=== PATIENT | female | born 1970 | race Caucasian/White ===

== ENCOUNTER → 2020-01-03 10:00 | Outpatient (CLI) | payer BC, SELFPAY ==
--- NOTE | ~2020-01-03 | MM_ITS ---
EXAMINATION: MM screening bart BI w lesa HISTORY: Screening mammogram TECHNIQUE: Craniocaudal and mediolateral oblique 3-D tomosynthesis images were obtained and synthetic 2-D images were generated. CAD analysis was submitted and interpreted. COMPARISON: No prior mammogram is available for comparison at this institution. BREAST PARENCHYMAL COMPOSITION: There are scattered areas of fibroglandular density. FINDINGS: There is focal asymmetry in the upper outer quadrant of the right breast. There is no mammo graphic evidence for malignancy in the left breast. IMPRESSION: 1. Focal asymmetry upper outer quadrant of the right breast. 2. Additional mammographic views and possible breast ultrasound are recommended. BI-RADS Category 0: Incomplete: Needs additional imaging evaluation. Reviewed, dictated and finalized at location A. GER PLANNING IMPRESSION: 1. Focal asymmetry upper outer quadrant of the right breast. 2. Additional mammographic views and possible breast ultrasound are recommended . BI-RADS Category 0: Incomplete: Needs additional imaging evaluation.
== END ==
PROVIDERS: PCP Family Medicine; Visit Provider Obstetrics & Gynecology Gynecologic Oncology
DX: Z12.31 Encounter for screening mammogram for malignant neoplasm of breast (principal); R92.8 Other abnormal and inconclusive findings on diagnostic imaging of breast
CPT/HCPCS: 77063; 77067

== ENCOUNTER 2020-04-08 14:36 | Outpatient (CLI) | payer BC, SELFPAY ==
--- NOTE | ~2020-04-08 | US_ITS ---
EXAMINATION:US venous doppler LE LT INDICATION:Left leg swelling TECHNIQUE: Multiple grayscale, color flow and Doppler images of the left lower extremity deep venous systems were obtained and reviewed. COMPARISON:01/05/2008 FINDINGS: The common femoral, superficial femoral and popliteal veins demonstrate normal respiratory variation, augmentation and compressibility. Color flow is also seen within the posterior tibial, pe roneal, greater saphenous and profunda veins. IMPRESSION: 1: No lower extremity deep venous thrombosis. Reviewed, dictated and finalized at location A.
== END 2020-04-08 14:37 | disposition home or self-care (01) ==
PROVIDERS: PCP Family Medicine; Visit Provider Internal Medicine Medical Oncology
DX: M79.89 Other specified soft tissue disorders (principal)
CPT/HCPCS: 93971

== ENCOUNTER 2020-07-30 16:03 | Outpatient (CLI) | payer BC, SELFPAY ==
--- NOTE | ~2020-07-30 | XR_ITS ---
XR ankle RT min 3V DATE: 07/30/2020 16:29 INDICATION: Right ankle pain TECHNIQUE: 4 views COMPARISON: None FINDINGS: No fracture or dislocation of the ankle or disruption of the ankle mortise. Mild plantar calcaneal enthesopathy. IMPRESSION: Mild calcaneal enthesopathy Reviewed, dictated and finalized at location B. IMPRESSION: Mild calcaneal enthesopathy
--- NOTE | ~2020-07-30 | XR_ITS ---
XR foot RT min 3V DATE: 07/30/2020 16:29 INDICATION: Right foot pain TECHNIQUE: 4 views COMPARISON: None FINDINGS: Mild plantar calcaneal enthesopathy. No fracture or dislocation, periosteal reaction or karlos ne destruction. IMPRESSION: Mild plantar calcaneal enthesopathy Reviewed, dictated and finalized at location B.
== END 2020-07-30 16:04 ==
PROVIDERS: PCP Family Medicine; Visit Provider Family Medicine
DX: M25.571 Pain in right ankle and joints of right foot (principal)
CPT/HCPCS: 73610; 73630

== ENCOUNTER 2020-12-30 15:02 | Outpatient (CLI) | payer BC, SELFPAY ==
--- NOTE | ~2020-12-30 | XR_ITS ---
EXAMINATION: XR elbow LT min 3V DATE: 12/30/2020 15:32 INDICATION: Left elbow pain TECHNIQUE: Anteroposterior, two oblique and lateral views of the left elbow were obtained. COMPARISON: None. FINDINGS: Alignment is normal. No fracture or joint effusion. Joint spaces are normal. Soft tissues a re unremarkable. IMPRESSION: 1. No acute osseous abnormality. Reviewed, dictated and finalized at location A. 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
== END 2020-12-30 15:03 ==
PROVIDERS: PCP Family Medicine; Visit Provider Family Medicine
DX: M25.522 Pain in left elbow (principal)
CPT/HCPCS: 73080

== ENCOUNTER 2021-06-16 11:46 | Outpatient (CLI) | payer BC, SELFPAY ==
--- NOTE | ~2021-06-16 | XR_ITS ---
EXAMINATION: XR toe 3rd LT min 2V DATE: 06/16/2021 13:25 INDICATION: Pain, swelling and bruising at the left third toe post fall TECHNIQUE: Dorsal plantar, lateral and oblique views of the left third toe were obtained. COMPARISON: None FINDINGS: Minimal distraction of a tiny intra-articular avulsion fracture along the dorsal rim at the base of t he third distal phalanx. Mild mallet toe configuration of the third toe with 20 degree of plantar fle xion at the distal interphalangeal joint and fully extended proximal interphalangeal joint. No other fractures identified. Joint spaces are relatively preserved. Soft tissue swelling about the third dis danielle interphalangeal joint. IMPRESSION: Left third mallet toe with minimal distraction a tiny intra-articular avulsion fracture along the kayal kel rim of the base of the third distal phalanx. Reviewed, dictated and finalized at location A. IMPRESSION: Left third mallet toe with minimal distraction a tiny intra-articular avulsion fracture along the dorsal rim of the base of the third distal phalanx.
--- NOTE | ~2021-06-16 | XR_ITS ---
EXAMINATION: XR chest 2V 06/16/2021 12:58 INDICATION: Dyspnea. PROCEDURE: 2 view chest COMPARISON: No prior studies for comparison. FINDINGS: The lungs are clear. The cardiomediastinal silhouette is within normal limits. There are no pleural effusions. There is no pneumothorax suspected. IMPRESSION: 1: NO ACUTE CARDIOPULMONARY DISEASE. Reviewed, dictated and finalized at location A.
--- NOTE | ~2021-06-16 | XR_ITS ---
EXAMINATION: XR ankle RT min 3V DATE: 06/16/2021 13:25 INDICATION: Right ankle pain TECHNIQUE: Anteroposterior, oblique, mortise, and lateral views of the right ankle were obtained. COMPARISON: 07/30/2020 FINDINGS: Alignment is normal. No fracture. Joint spaces are well maintained. No ankle joint effusion. Small plantar calcaneal spur. The soft tissues are unremarkable. IMPRESSION: 1. Small plantar cranial spur. Otherwise unremarkable right ankle radiographs. Reviewed, dictated and finalized at location A.
== END 2021-06-16 11:47 ==
PROVIDERS: PCP Family Medicine; Visit Provider Family Medicine
DX: R06.00 Dyspnea, unspecified (principal); M25.571 Pain in right ankle and joints of right foot; M79.675 Pain in left toe(s); M77.31 Calcaneal spur, right foot
CPT/HCPCS: 71046; 73610; 73660

== ENCOUNTER 2021-07-17 07:47 | Outpatient (CLI) | payer BC, SELFPAY ==
--- NOTE | ~2021-07-17 | XR_ITS ---
EXAMINATION: XR wrist LT min 3V DATE: 07/17/2021 08:11 INDICATION: Left wrist pain TECHNIQUE: Posteroanterior, ulnar deviation, oblique, and lateral views of the left wrist were obtain ed. COMPARISON: None available FINDINGS: There is no fracture, dislocation, or subluxation. Mild osteoarthritis is noted in the stefanie caphe and first carpometacarpal joints. The soft tissues are unremarkable. IMPRESSION: 1. No acute osseous abnormality. Reviewed, dictated and finalized at location A.
== END 2021-07-17 07:48 ==
PROVIDERS: PCP Family Medicine; Visit Provider Family Medicine
DX: M25.532 Pain in left wrist (principal)
CPT/HCPCS: 73110

== ENCOUNTER 2021-10-22 15:50 | Outpatient (CLI) | payer BC, SELFPAY ==
--- NOTE | ~2021-10-22 | XR_ITS ---
XR femur LT min 2V DATE: 10/22/2021 16:23 INDICATION: Left hip and leg pain TECHNIQUE: AP and lateral views COMPARISON: 10/22/2021 left hip FINDINGS: There is osteopenia. No fracture or dislocation, periosteal reaction or bone destruction of the left femur is detected. No rmal alignment at the left hip and knee joints. IMPRESSION: Osteopenia Reviewed, dictated and finalized at location B. TABLE ATTENDANT IMPRESSION: Osteopenia
--- NOTE | ~2021-10-22 | XR_ITS ---
XR hip LT 2V w AP pelvis 10/22/2021 16:23 Indication: Hip pain Procedure: AP pelvis and 2 views left hip Comparison: No prior studies for comparison. Findings: No fracture, subluxation or dislocation. There is anatomic alignment. There are extensive s urgical changes in the lower abdomen and pelvis. Impression: 1: No acute bone or joint abnormality. Reviewed, dictated and finalized at location A. F DEVELOPER Impression: 1: No acute bone or joint abnormality.
== END 2021-10-22 15:51 ==
PROVIDERS: PCP Family Medicine; Visit Provider Family Medicine
DX: M85.852 Other specified disorders of bone density and structure, left thigh (principal)
CPT/HCPCS: 73502; 73552

== ENCOUNTER 2022-09-13 12:42 | Outpatient (CLI) | payer BC, SELFPAY ==
--- NOTE | ~2022-09-13 | XR_ITS ---
EXAMINATION: XR knee RT 3V DATE: 09/13/2022 13:09 INDICATION: Right knee pain TECHNIQUE: Three views of the right knee were obtained. COMPARISON: None. FINDINGS: Alignment is normal. No fracture or osteochondral lesion. Joint spaces are normal with no e rosions. No joint effusion/synovitis. Soft tissues are unremarkable. IMPRESSION: 1. No acute osseous abnormality. Reviewed, dictated and finalized at location F. UREMENT CONSULTANT
== END 2022-09-13 12:43 ==
LOC: MICIMG 12:46
PROVIDERS: PCP Family Medicine; Visit Provider Physician Assistant
DX: M25.561 Pain in right knee (principal)
CPT/HCPCS: 73562

== ENCOUNTER 2022-12-30 10:11 | Outpatient (CLI) | payer BC, SELFPAY ==
--- NOTE | ~2022-12-30 | DEXA_ITS ---
Bone Density Report Name: NITHIN SHER Age: 52 Sex: Female Ethnicity: White Date of : 1970 Indication: postmenopausal; screening for osteoporosis; height loss; hysterectomy; Referring Provider: AZUL, RODDY Nazario Study: Bone densitometry was performed. Exam Date: December 30, 2022 Accession number: [id number] Bone Density: Region BMD T-score Z-score Classification AP Spine (L1-L4) 0.856 -1.7 -0.7 Osteopenia Femoral Neck (Left) 0.574 -2.5 -1.5 Osteoporosis Total Hip (Left) 0.694 -2.0 -1.4 Osteopenia Femoral Neck (Right) 0.606 -2.2 -1.2 Osteopenia Total Hip (Right) 0.734 -1.7 -1.1 Osteopenia Total Hip Mean 0.714 -1.9 -1.3 Osteopenia World Health Organization criteria for BMD impression classify patients as: Normal (T-score at or above -1.0), Osteopenia (T-score between -1.0 and -2.5), or Osteoporosis (T-score at or below -2.5). 10-year Fracture Risk: FRAX not reported because: Some T-score for Spine Total or Hip Total or Femoral Neck at or below -2.5 Clinical Information Provided by Patient: Has used the following medications: Vitamin D, multi vit and vit D off and on Has the following medical conditions: Hysterectomy, ovarian cancer age 31 Patient maximum height was 67 Menopause Age: 31 No regular weight bearing exercise Does not regularly consume dairy products Drinks caffeinated beverages Onset of menses at age 10 Number of children 1 Impression: The patient has osteoporosis, based on the Left Femoral Neck T-score. Discussion: INCREASED RISK OF FRACTURE. BONE DENSITY IS UNDESIRABLY LOW AT ONE OR MORE SKELETAL SITES, CONSISTENT WITH POSTMENOPAUSAL OSTEOPOROSIS. This patient's lowest T-score meets the World Health Organization's (WHO) criteria for osteoporosis at one or more sites (T-score -2.5 or below). In untreated patients, the risk of osteoporotic fracture increases approximately two-fold for each 1.0 SD decrease in T-score. Low bone density is not the only risk factor for fracture; also consider factors such as patient's age, frailty or poor health, risk of falling, risk of injury, previous osteoporotic fracture, family history of osteoporosis, cigarette smoking, low body weight, etc. Not everyone with low bone mineral density has osteoporosis; osteomalacia and other metabolic bone disorders should also be considered. Patients who have osteoporosis should be evaluated for specific diseases and conditions (secondary causes) that may cause or contribute to bone loss. The [place] [employer]ocrin[employer] (AACE) and National Osteoporosis Foundation (NOF) recommend pharmacologic intervention for all postmenopausal women whose T-score is in this range. The patient should follow a healthful lifestyle (good nutrition with adequate calcium and vitamin D, and appropriate weight-bearing ex
== END 2022-12-30 10:12 ==
LOC: MICIMG 10:12
PROVIDERS: PCP Family Medicine; Visit Provider Family Medicine
DX: Z78.0 Asymptomatic menopausal state (principal); M85.88 Other specified disorders of bone density and structure, other site; M81.0 Age-related osteoporosis without current pathological fracture; M85.852 Other specified disorders of bone density and structure, left thigh; M85.851 Other specified disorders of bone density and structure, right thigh
CPT/HCPCS: 77080

== ENCOUNTER 2023-01-05 11:50 | Outpatient (CLI) | payer BC, SELFPAY ==
--- NOTE | ~2023-01-05 | MR_ITS ---
EXAMINATION: MR knee RT wo con DATE: 01/05/2023 12:27 INDICATION: Right knee pain TECHNIQUE: Magnetic resonance imaging (MRI) of the right knee was performed without intravenous contr ast. Sequences included coronal PD-weighted FSE, coronal PD-weighted FS FSE, sagittal T2-weighted FS E, sagittal PD-weighted FS FSE and axial PD weighted fat saturated FSE. COMPARISON: Right knee radiographs dated 09/13/2022 FINDINGS: Medial compartment: Medial meniscus is normal. Articular cartilage is normal. Lateral compartment: 4 mm lateral extrusion of the body of the lateral meniscus with complex tear extending from the anter ior horn to posterior horn. Partial-thickness chondral ulceration involving greater than 50% the cart ilage thickness at the lateral half of the anterior to central weightbearing medial femoral condyle. There is a small region of mild underlying subarticular edema-like signal change at the lateral marilu n of the anterior weightbearing lateral femoral condyle. There is additional less severe partial thic kness chondral ulceration without degenerative subchondral changes at the central aspect of the later al tibial plateau. Patellofemoral compartment: Mild partial-thickness chondral fissuring involving less than 50% of the cartilage thickness at the c entral aspect of the medial patellar facet. Small region of partial-thickness chondral ulceration at the inferior aspect of the medial trochlea. Ligaments and tendons: Anterior and posterior cruciate ligaments are normal. The medial collateral ligament is normal. There is mild thickening and mild increased signal at the proximal fibular collateral ligament without sig nificant surrounding edema consistent with scarring related to chronic sprain. The extensor mechanism is normal. The visualized medial and lateral hamstring tendons as well as the iliotibial band are no rmal. Fluid: Small right knee joint effusion at the suprapatellar pouch. Moderate-sized Frey's cyst measuring 6.0 cm craniocaudally and 2.3 x 0.9 cm maximal transaxial dimensions. Frey's cyst likely partially rupt ured with small amount of nonloculated edema extending caudally from the Frey's cyst along the super ficial fascia of the medial head of the gastrocnemius muscle. No loose osteochondral bodies identifie d. Osseous/other: Normal marrow signal. No fracture or pathologic marrow replacing process. IMPRESSION: 1. Complex lateral meniscal tear. 2. 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 3. Small right knee joint effusion and moderate-sized Frey's cyst. Reviewed, dictated and finalized at location A. 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 Complex lateral meniscal tear. 2. Mild osteoarthritis with moderate to high-grade chondromalacia in the latera l compartment and moderate grade chondral malacia in the patellofemoral compart ment. 3. Small right knee joint effusion and moderate-sized Frey's cyst.
== END 2023-01-05 11:51 ==
PROVIDERS: PCP Family Medicine; Visit Provider Family Medicine
DX: M17.11 Unilateral primary osteoarthritis, right knee (principal); M25.461 Effusion, right knee; M71.21 Synovial cyst of popliteal space [Baker], right knee; S83.271A Complex tear of lateral meniscus, current injury, right knee, initial encounter; X58.XXXA Exposure to other specified factors, initial encounter
CPT/HCPCS: 73721

== ENCOUNTER → 2023-07-06 07:51 | Outpatient (CLI) | payer BC, SELFPAY ==
--- NOTE | ~2023-07-06 | MM_ITS ---
EXAMINATION: MM diagnostic bart BI w lesa HISTORY: Left breast pain TECHNIQUE: ML, MLO and CC 3-D tomosynthesis images of both breasts were performed and synthetic 2-D i mages were generated. CAD analysis was submitted and interpreted. COMPARISON: 01/03/2020bilateral screening mammogram BREAST PARENCHYMAL COMPOSITION: There are scattered areas of fibroglandular density. FINDINGS: Previously reported focal mammographic asymmetry in the upper outer right breast is diminis hed in size since 01/03/2020, which would be most consistent with benign process. No suspicious mass or architectural distortion, malignant calcification, skin thickening or retractio n or significant new or developing density is detected. IMPRESSION: 1. No mammographic evidence of malignancy 2. Routine annual mammographic screening is recommended. BI-RADS Category 1: Negative Reviewed, dictated and finalized at location A.
== END ==
PROVIDERS: PCP Family Medicine; Visit Provider Family Medicine
DX: N64.4 Mastodynia (principal)
CPT/HCPCS: 77062; 77066; G0279